=== PATIENT | male | born 1975 | race Caucasian/White ===

== ENCOUNTER 2020-03-24 15:15 | Emergency (ER) | payer OTHER ==
[~2020-03-24] VITALS: Ht 180.3 cm; Wt 127.3 kg
[2020-03-24 16:02] VITALS: BP 172/96
[2020-03-24] MEDS ORDERED: ketorolac tromethamine 15mg/ml inj. IM ONE (16:50)
[2020-03-24] MEDS ORDERED: cyclobenzaprine 10mg tablet PO ONE (16:50)
[2020-03-24] MEDS ORDERED: ORPH100T2 PO (17:06)
[2020-03-24] MEDS ORDERED: IBUP-1984 PO (17:06)
== END 2020-03-24 17:30 | disposition home or self-care (01) ==
LOC: ER 15:16
DX: M25.512 Pain in left shoulder (principal); M79.602 Pain in left arm; R20.0 Anesthesia of skin; Z79.899 Other long term (current) drug therapy
CPT/HCPCS: 73030; 73080; 96372; 99284; J1885

== ENCOUNTER 2020-10-20 09:50 | Day surgery (SDC) | payer OTHER ==
[2020-10-13 12:11] LABS: ALBUMIN 4.4 G/DL (3.4-5.0); ALBUMIN/GLOBULIN RATIO 1.1 (1.1-1.5); ALKALINE PHOSPHATASE 111 IU/L (46-116); BLOOD UREA NITROGEN 19 MG/DL (7-18); BUN/CREATININE RATIO 17.1 (5.4-32.0); CALCIUM 10.2 MG/DL (8.5-10.1); CHLORIDE 99 MMOL/L (99-107); CREATININE 1.11 MG/DL (0.60-1.10); PRE OP ALT 33 U/L (30-65); PRE OP ANION GAP 11 (8-16); PRE OP AST 19 U/L (10-37); PRE OP BILIRUB, TOTAL 0.3 MG/DL (0.0-1.0); PRE OP GLUCOSE 127 MG/DL (70-104); PRE OP POTASSIUM 4.2 MMOL/L (3.4-5.1); PRE OP SODIUM 139 MMOL/L (135-145); TOTAL PROTEIN 8.3 G/DL (6.4-8.2); eGFR 71 ML/MIN
[2020-10-13 16:01] LABS: BASOPHILS # (AUTO) 0.1 X10'3 (0-0.2); BASOPHILS % (AUTO) 0.8 % (0-1); EOSINOPHILS # (AUTO) 0.1 X10'3 (0-0.9); EOSINOPHILS % (AUTO) 1.5 % (0-6); LYMPHOCYTES # (AUTO) 2.5 X10'3 (1.1-4.8); LYMPHOCYTES % (AUTO) 29.6 % (21-51); MEAN CORPUSCULAR HGB CONC 34.1 g/dL (33.0-36.5); MEAN CORPUSCULAR VOLUME 90.9 FL (78-98); MEAN PLATELET VOLUME 8.8 FL (7.4-10.4); MONOCYTES # (AUTO) 0.6 X10'3 (0-0.9); MONOCYTES % (AUTO) 6.6 % (2-12); NEUTROPHILS # (AUTO) 5.1 X10'3 (1.8-7.7); NEUTROPHILS % (AUTO) 61.5 % (42-75); PRE OP HEMATOCRIT 45.7 % (42.0-52.0); PRE OP HEMOGLOBIN 15.6 g/dL (14.0-17.9); PRE OP PLATELET COUNT 255 X10'3 (140-440); RED BLOOD COUNT 5.03 X10'6 (4.70-6.10); RED CELL DISTRIBUTION WIDTH 14.5 % (11.5-14.5)
[~2020-10-20] VITALS: Ht 180.3 cm; Wt 130.6 kg
[2020-10-20] VITALS (14 sets, daily range): BP systolic 134–145; BP diastolic 77–92
[~2020-10-20 09:50] MED LIST: ASPI-612 PO; DOCUMENT DATE & TIME OF BETA-BLOCKER PO ONE; EXEN2AUT SQ; FELO10TA PO; LOSA1TAB39 PO; LOVA20TA2 PO; METF-436 PO; METO100T7 PO; PIOG15TA8 PO; SPIR25TA PO; ceFAZolin/D5W- 1GM premix 50 ML IV ONE; cefazolin/dext.iso 2gm/100ml 100 ML IV ONE; famotidine 20mg tablet PO ONE; ringers solution, lacted 1,000 ML IV SCH; vancomycin 1,500 MG in NS 300ml IV soln IV ONE
[2020-10-20] MEDS ORDERED: succinylcholine 20mg/ml inj IV ONE (11:26)
[2020-10-20] MEDS ORDERED: ROPIVAcaine 0.5% (5mg/ml) 30ml vial ONE (11:27)
[2020-10-20] MEDS ORDERED: LIDOcaine 2% (20mg/ml) 5ml vial ONE (11:27)
[2020-10-20] MEDS ORDERED: propofol inj 20 ML IV ONE ×2 (11:27→12:59)
[2020-10-20] MEDS ORDERED: morphine 4 MG/ML inj SYRINge IV PRN (11:35)
[2020-10-20] MEDS ORDERED: morphine 2 MG/ML inj. syringe IV PRN (11:35)
[2020-10-20] MEDS ORDERED: labetalol 20mg/4ml (5mg/ml) syringe IV PRN (11:35)
[2020-10-20] MEDS ORDERED: ondansetron/PF 4mg/2ml inj IV PRN (11:35)
[2020-10-20] MEDS ORDERED: fentaNYL/PF 50MCG/1 ML 2ML syringe IV PRN ×2 (11:35)
[2020-10-20] MEDS ORDERED: hydrALAZINE 20mg/ml inj. IV PRN (11:35)
[2020-10-20] MEDS ORDERED: ringers solution, lacted 1,000 ML IV SCH (11:35)
[2020-10-20] MEDS ORDERED: triamcinolone acetonide 40mg/ml inj ONE (12:01)
[2020-10-20] MEDS ORDERED: BUPIVAcaine/PF 2.5 mg/ml (0.25%) 30ml vial ONE (12:02)
[2020-10-20] MEDS ORDERED: methylPREDNISolone sod succ 125mg/2ml vial ONE (12:02)
[2020-10-20] MEDS ORDERED: sevoflurane 250ml liquid IH ONE (12:23)
[2020-10-20] MEDS ORDERED: ondansetron/PF 4mg/2ml inj ONE (12:23)
[2020-10-20] MEDS ORDERED: midazolam 1 mg/ML 2ml injection ONE (12:29)
[2020-10-20] MEDS ORDERED: fentaNYL/PF 50MCG/1 ML 2ML syringe ONE ×2 (12:29→15:00)
[2020-10-20] MEDS ORDERED: dexamethasone sod phosphate 4mg/ml inj. ONE (12:59)
[2020-10-20] MEDS ORDERED: ketorolac trometh. 30mg/ml inj. ONE (14:59)
--- NOTE | 2020-10-20 15:15 | NUR ---
Received from OR via [facility], accompanied by Anesthesiologist DR GRIER and report given by Anesthesiologist. PT VERY DROWSY, NO S/S OF DISTRESS/DISCOMFORT. 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 LEFT SHOULDER W/TELFA DRSG COVERING CDI. Addendum: 10/20/20 at 1547 by Lara Dimas RN Amended: Links added.
--- NOTE | 2020-10-20 17:45 | NUR ---
PT UP AND ABLE TO AMBULATE SAFELY, USES IS W/GOOD TECHNIQUE, SA02 REMAINED ABOVE 93% LAST HOUR PT WAS HERE, PT COMFORTABLE. D/C INSTRUCTIONS GIVEN AND GONE OVER W/PT AND PTS WHO VERBALIZED UNDERSTANDING. PT D/CD TO HOME VIA W/C TO PRIVATE VEHICLE W/O INCIDENT. Addendum: 10/20/20 at 1802 by Lara Dimas RN Amended: Links added.
== END 2020-10-20 17:45 | disposition home or self-care (01) ==
LOC: SSTAY O 09:50 → EDSTATUS 12:00 → SSTAY O 17:45 → UNDODISIN 17:45
PROVIDERS: ATTEND Orthopaedic Surgery
DX: M75.42 Impingement syndrome of left shoulder (principal); M19.012 Primary osteoarthritis, left shoulder; G56.02 Carpal tunnel syndrome, left upper limb; G56.22 Lesion of ulnar nerve, left upper limb; M77.12 Lateral epicondylitis, left elbow; M65.812 Other synovitis and tenosynovitis, left shoulder; M94.212 Chondromalacia, left shoulder; Z20.822 Contact with and (suspected) exposure to COVID-19; I10 Essential (primary) hypertension; E11.59 Type 2 diabetes mellitus with other circulatory complications; E78.5 Hyperlipidemia, unspecified; E66.01 Morbid (severe) obesity due to excess calories; Z68.41 Body mass index [BMI] 40.0-44.9, adult; Z79.899 Other long term (current) drug therapy; Z79.84 Long term (current) use of oral hypoglycemic drugs
CPT/HCPCS: 24359; 29823; 29824; 29826; 36415; 64415; 64719; 64721; 76942; 80053; 82948; 85025; 87081; 93005; J0330; J0690; J1100; J1885; J2001; J2250; J2405; J2704; J2930; J3010; J3301; J3370; J3490; J7040; U0003; U0005; A4215; A4618; A6250; A6449; A7000; J2795; J7120